=== PATIENT | female | born 1955 | race Two or more races ===

== ENCOUNTER 2019-03-28 13:16 | Emergency (ER) | payer MEDICAID ==
[~2019-03-28] VITALS: Ht 167.6 cm; Wt 74.8 kg
[2019-03-28 13:39] VITALS: BP 162/88
[2019-03-28] MEDS ORDERED: IBUPROFEN 600 MG TABLET PO ONE ×2 (13:45→14:00)
--- NOTE | 2019-03-28 13:59 | NUR ---
BACK FROM X-RAY,MEDICATED ORDERED
--- NOTE | 2019-03-28 15:00 | NUR ---
Patient discharged to home in stable condition. Written and verbal after care instructions given. Patient verbalizes understanding of instruction.
== END 2019-03-28 15:00 | disposition home or self-care (01) ==
LOC: ER 13:19
DX: S63.592A Other specified sprain of left wrist, initial encounter (principal); I10 Essential (primary) hypertension; E07.9 Disorder of thyroid, unspecified; X58.XXXA Exposure to other specified factors, initial encounter; Y93.89 Activity, other specified; Y92.89 Other specified places as the place of occurrence of the external cause; Y99.8 Other external cause status
CPT/HCPCS: 73110